=== PATIENT | female | born 1940 | race Caucasian/White ===

== ENCOUNTER 2017-04-22 09:46 | Outpatient (CLI) | payer MEDICARE, OTHER ==
[2017-04-22 10:41] LABS: BASOPHILS % 0.7 (0.0-1.5); EOSINOPHILS % 1.2 % (0.0-6.8); MEAN CORPUSCULAR HEMOGLOBIN 29.3 pg (28.0-34.0); MONOCYTES % 7.4 % (0.0-11.0); NEUTROPHILS # 2.2 # k/uL (1.4-7.7)
[2017-04-22 10:56] LABS: eGFR (African) > 60; eGFR (Non-African) > 60
== END 2017-04-22 09:47 ==
LOC: LAB 09:46
PROVIDERS: ATTEND Family Medicine
DX: E78.5 Hyperlipidemia, unspecified (principal); R53.82 Chronic fatigue, unspecified
CPT/HCPCS: 36415; 80053; 80061; 84443; 85025

== ENCOUNTER 2018-04-14 14:08 | Outpatient (CLI) | payer MEDICARE, OTHER | END 2018-04-14 14:10 | LOC: LAB 14:08 | PROVIDERS: ATTEND Family Medicine | DX: Z53.9 Procedure and treatment not carried out, unspecified reason (principal) ==

== ENCOUNTER 2018-04-17 10:40 | Outpatient (CLI) | payer MEDICARE, OTHER ==
[2018-04-17 12:50] LABS: eGFR (Non-African) > 60
== END 2018-04-17 10:42 ==
LOC: LAB 10:40
PROVIDERS: ATTEND Family Medicine
DX: E78.5 Hyperlipidemia, unspecified (principal)
CPT/HCPCS: 80053; 80061

== ENCOUNTER 2018-06-08 15:39 | Outpatient (CLI) | payer MEDICARE, OTHER ==
--- NOTE | 2018-06-08 16:23 | Diagnostic Imaging Report ---
JENNIFER JEAN [facility] [address] [facility] [address] [address] Report Submission Date: Jun 08, 2018 4:20:34 PM ONCOLOGY ADMIN Patient Study Name: ELIOT KNOWLES Date: Jun 08, 2018 3:43:05 PM ONCOLOGY ADMIN Modality Type: DX Gender: F Description: CHEST : 36 Institution: [facility] Physician: JENNIFER JEAN Examination: PA and lateral chest. History: Evaluate lung kelly. LARYNGITIS X 2-3 MONTHS, MEDICATIONS NOT WORKING. NO OTHER CHEST COMPLAINTS. NON-SMOKER. (Hx) Comparison exam: None provided. Findings: PA and lateral views of the chest demonstrates a normal cardiac and mediastinal silhouette. Mildly tortuous aorta. Chronic interstitial changes. No focal infiltrate. No blunting of the costophrenic margins. acromioclavicular joint degenerative changes. Impression: No acute pulmonary process. Electronically signed on Jun 08, 2018 4:20:34 PM ONCOLOGY ADMIN by: Alexis KEYS
== END 2018-06-08 15:42 ==
LOC: RAD 15:39
PROVIDERS: ATTEND Family Medicine
DX: R06.02 Shortness of breath (principal)
CPT/HCPCS: 71046

== ENCOUNTER 2018-09-22 12:50 | Emergency (ER) | payer MEDICARE, OTHER ==
[2018-09-22 13:10] LABS: BASOPHILS % 0.5 (0.0-1.5); EOSINOPHILS % 1.6 % (0.0-6.8); MONOCYTES % 5.8 % (0.0-11.0); NEUTROPHILS # 4.6 # k/uL (1.4-7.7)
[2018-09-22 13:51] LABS: eGFR (Non-African) > 60
--- NOTE | 2018-09-22 13:51 | Diagnostic Imaging Report ---
RJ DANIELSON [facility] [address] [facility] [address] [place], [place]. [address] Report Submission Date: Sep 22, 2018 1:31:21 PM MECHANICAL MAINTENANCE WORKER Patient Study Name: ELIOT KNOWLES Date: Sep 22, 2018 1:04:46 PM MECHANICAL MAINTENANCE WORKER Modality Type: CT\SR Gender: F Description: CT BRAIN W/O CONTRAST : 36 Institution: [facility] Physician: RJ DANIELSON HEAD CT WITHOUT CONTRAST HISTORY: Single episode of memory loss COMPARISON: None TECHNIQUE: Axial images were obtained from the skullbase to the vertex without IV contrast. FINDING: The ventricular system is normal in size and configuration. There is normal parenchymal attenuation. There is no positive mass effect or intra/extra-axial hemorrhage. Visualized paranasal sinuses and mastoid air cells are clear. The calvarium is intact. IMPRESSION: NO INTRACRANIAL ABNORMALITY. Electronically signed on Sep 22, 2018 1:31:21 PM MECHANICAL MAINTENANCE WORKER by: Sonali KEYS
--- NOTE | 2018-09-22 14:46 | ED Physician Documentation ---
General Adult - HISTORIAN Historian: patient - HPI Stated Complaint: memory loss, headache Chief Complaint: General Adult Additional Information: Patient presents to ED after having trouble remembering events which happened this morning. Patient states she went out to have breakfast with her family around 0730. She states she ordered rye toast but that is the last thing she remembers until she was in the parking lot of the restaurant leaving. She went home and started shoveling snow and had another lapse of memory, not remembering when or how she got back into the house. She called family and had them bring her to the ER. Upon presentation patient complains of mild frontal headache. Patient denies any difficulty with speech, weakness, numbness or tingling, nausea/vomiting, or visual changes. Her family states she acted fine the entire time. Onset: hours Timing: gone now Severity: mild - ROS CONST: denies: recent illness EYES/ENT: denies: problems with vision CVS/RESP: denies: chest pain, shortness of breath GI/: denies: vomiting, nausea MS/SKIN/LYMPH: denies: neck pain, leg swelling NEURO/PSYCH: headache - PAST HX Past History: none Other History: none Surgeries/Procedures: none Allergies/Adverse Reactions: Allergies Allergy/AdvReac Type Severity Reaction Status Date / Time Penicillins AdvReac Unknown Hives Verified 09/22/18 13:49 Sulfa (Sulfonamide AdvReac Unknown Hives Verified 09/22/18 13:49 Antibiotics) - SOCIAL HX Smoking History: non-smoker Alcohol Use: none Drug Use: none - FAMILY HX Family History: No - VITAL SIGNS Vital Signs: Vital Signs Temp Pulse Resp BP Pulse Ox 96.4 F L 63 26 H 146/50 98 09/22/18 12:50 09/22/18 12:50 09/22/18 12:50 09/22/18 12:50 09/22/18 12:50 - REVIEWED ASSESSMENTS Nursing Assessment Reviewed: Yes Vitals Reviewed: Yes Progress - Progress Progress: [address] Moscoso, neurologist, recommends transfer to ER. 1505 Patient refused ambulance transport, will go by private vehicle. - EKG/XRAY/CT EKG: NSR Comments: 62 bpm ED Results Lab/Radiology - Lab Results Lab Results: Lab Results 03/05/19 03/05/19 03/05/19 Unknown Unknown Unknown WBC 7.30 K/ul K/ul (4.00-12.00) RBC 4.39 M/ul M/ul (3.90-5.20) Hgb 13.2 g/dL g/dL (12.0-16.0) Hct 39.4 % % (34.5-46.5) MCV 90.0 fl fl (80.0-100.0) MCH 30.0 pg pg (28.0-34.0) MCHC 33.5 g/dL g/dL (30.0-36.0) RDW 13.9 % % (11.3-14.3) Plt Count 236 K/mm3 K/mm3 (130-400) Neut % (Auto) 62.4 % % (39.0-79.0) Lymph % (Auto) 29.7 % % (16.0-50.0) Tyler % (Auto) 5.8 % % (0.0-11.0) Eos % (Auto) 1.6 % % (0.0-6.8) Baso % (Auto) 0.5 (0.0-1.5) Neut # (Auto) 4.6 # k/uL # k/uL (1.4-7.7) Lymph # (Auto) 2.2 # k/uL # k/uL (0.6-4.0) Tyler # (Auto) 0.4 # k/uL # k/uL (0.0-0.9) Eos # (Auto) 0.1 # k/uL # k/uL (0.0-0.6) Baso # (Auto) 0.0 # k/uL # k/uL (0.0-0.5) Sodium 142 mmol/L mmol/L (136-145) Potassium 3.5 mmol/L mmol/L (3.5-5.1) Chloride 101 mmol/L mmol/L (98-107) Carbon Dioxide 31 mmol/L H mmol/L (22-30) BUN 19 mg/dL H mg/dL (7-17) Creatinine 0.77 mg/dL mg/dL (0.52-1.04) Estimated Creat Clear 85 Est GFR ( Amer) > 60 (60 - ) Est GFR (Non-Af Amer) > 60 (60 - ) Glucose 98 mg/dL mg/dL (74-106) Calcium 9.4 mg/dL mg/dL (8.4-10.2) Total Bilirubin 0.4 mg/dL mg/dL (0.2-1.3) AST 29 U/L U/L (15-46) ALT 15 U/L U/L (13-69) Alkaline Phosphatase 64 U/L U/L (38-126) Troponin I < 0.03 ng/mL L ng/mL (0.03-0.06) Total Protein 7.4 g/dL g/dL (6.3-8.2) Albumin 4.6 g/dL g/dL (3.5-5.0) - Orders Orders: ED Orders Category Date Time Status Place IV Lock 1T Care 09/22/18 13:[address] BRAIN W/O CONTRAST Stat Exams 09/22/18 Completed CBC/PLATELET/DIFF Stat Lab 09/22/18 Completed CMP Stat Lab 09/22/18 Completed TROPONIN I (cTnI) Stat Lab 09/22/18 Completed URINALYSIS Routine Lab 09/22/18 Ordered Chem Sticks Med 09/22/18 12:57 Discontinued 1 each NOW ONE EKG WITH COMPARISON Stat Ther 09/22/18 Completed General Adult Physical Exam - PHYSICAL EXAM GENERAL APPEARANCE: no distress EENT: NEVAEH NECK: normal inspection, supple RESPIRATORY: no resp distress, chest non-tender, breath sounds normal CVS: reg rate & rhythm, heart sounds normal ABDOMEN: soft, normal bowel sounds, non-tender BACK: normal inspection, no CVA tenderness SKIN: warm/dry, normal color EXTREMITIES: non-tender, no edema NEURO: oriented X3, CN's nml as tested, motor nml, sensation nml, mood/affect nml, cognition normal, other (NIH score 0 ) Discharge Clincal Impression: TIA (transient ischemic attack) Referrals: Ad Drake MD [Primary Care Provider] - 2 Days Condition: Stable Disposition: ADMITTED INPATIENT Decision to Admit: [id number] Date of Decison to Admit: 09/22/18 Decision Time: 15:05
[2018-09-22 16:34] VITALS: BP 151/57
== END 2018-09-22 15:50 | disposition other institution (70) ==
LOC: ED 12:50
DX: G45.9 Transient cerebral ischemic attack, unspecified (principal)
CPT/HCPCS: 36415; 70450; 80053; 84484; 85025; 99285; S1016

== ENCOUNTER 2019-02-26 12:48 | Outpatient (CLI) | payer MEDICARE, OTHER ==
[2019-02-26 13:14] LABS: BASOPHILS % 0.4 % (0.0-1.5); NEUTROPHILS # 2.6 # k/uL (1.4-7.7)
[2019-02-26 13:42] LABS: eGFR (Non-African) > 60
--- NOTE | 2019-02-27 02:21 | Diagnostic Imaging Report ---
JENNIFER JEAN [facility] [address] [facility] [address] Report Submission Date: Feb 27, 2019 12:56:29 AM CDT Patient Study Name: ELIOT KNOWLES Date: Feb 26, 2019 1:51:10 PM CDT Modality Type: CT\SR Gender: F Description: CT CHEST W/ CONTRAST : 36 Institution: [facility] Physician: JENNIFER JEAN CT of the chest with contrast Clinical history: Chronic cough for about a year. Contrast administered: 90 mL of Omnipaque. Technique: CT of the chest is performed in contiguous axial slices with sagittal and coronal reconstructions. Findings: The lungs are clear. There is no pleural effusion or significant pleural thickening. Central airways are patent. Vascular calcification is present in the thoracic aorta. Vascular structures enhance normally. There are small mediastinal nodes but no significant adenopathy. Gallstones are incidentally noted within the gallbladder. Bilateral breast implants are incidentally noted. Degenerative changes are seen in the thoracic vertebrae. Impression: 1. Vascular calcification. 2. Thoracic spondylosis. 3. The lungs are clear. Electronically signed on Feb 27, 2019 12:56:29 AM CDT by: Berhane KEYS
== END 2019-02-26 12:50 ==
LOC: RAD 12:48
PROVIDERS: ATTEND Family Medicine
DX: R05 Cough (principal)
CPT/HCPCS: 36415; 71260; 80053; 85025; Q9967